=== PATIENT | female | born 1965 | race African-American/Black ===

== ENCOUNTER 2016-10-01 13:27 | Emergency (ER) | payer MEDICAID ==
[~2016-10-01] VITALS: Ht 167.6 cm; Wt 80.0 kg
[2016-10-01 13:44] VITALS: BP 128/84
== END 2016-10-01 15:45 | disposition home or self-care (01) ==
LOC: ER 14:27
DX: K04.7 Periapical abscess without sinus (principal); I10 Essential (primary) hypertension; J45.909 Unspecified asthma, uncomplicated
CPT/HCPCS: 99283